=== PATIENT | female | born 2000 | race Caucasian/White ===

== ENCOUNTER 2025-01-28 09:49 | Emergency (ER) | payer OTHER, SELFPAY ==
[2025-01-28 09:50] VITALS: BP 138/89
[2025-01-28 10:24] LABS: % Basophils 0.4 % (0-2); % Eosinophils 0.3 % (0-6); % Immature Granulocytes 0.1 % (0-0.5); % Lymphocytes 17.1 % (20.5-51.1); % Monocytes 6.3 % (1.7-9.3); % Neutrophils 75.8 % (42.2-75.2); Absolute Lymphocytes 1.4 10^3/uL (1.2-3.4); Absolute Monocytes 0.5 10^3/uL (0.1-0.6); Hematocrit 40.5 % (37.0-47.0); Hemoglobin 13.9 g/dL (12.0-16.0); Mean Corp Hgb Conc. 34.3 g/dL (33.0-37.0); Mean Corpuscular Hgb 30.5 pg (27.0-31.0); Mean Corpuscular Volume 88.8 fL (81.0-99.0); Mean Platelet Volume 9.7 fL (7.4-10.4); Nucleated Red Blood Cells % 0 %; Platelet Count 323 10^3/uL (130-400); Red Blood Cell Count 4.56 10^6/uL (4.20-5.40); Red Cell Dist. Width 12.3 % (11.5-14.5); White Blood Cell Count 7.9 10^3/uL (4.8-10.8)
[2025-01-28 10:30] LABS: Urine Albumin Negative (Neg - Trace); Urine Bilirubin Negative (Negative); Urine Character Clear (Clear); Urine Color Yellow; Urine Glucose Negative (Negative); Urine Ketone 2+ (Negative); Urine Leukocyte Negative (Negative); Urine Nitrite Negative (Negative); Urine Occult Blood 3+ (Negative); Urine Urobilinogen Negative (Neg - 1+)
[2025-01-28 10:48] LABS: Urine Bacteria Few (Negative); Urine Red Blood Cell 0-2 /HPF (0-2); Urine Squamous Cell 16-20 /LPF (Few)
[2025-01-28 10:52] LABS: ALT (SGPT) 18 U/L (0-35); AST (SGOT) 27 U/L (14-36); Albumin 4.3 g/dl (3.5-5.0); Alkaline Phosphatase 61 U/L (38-126); Blood Urea Nitrogen 11 mg/dl (7-17); Calcium 9.5 mg/dl (8.4-10.2); Carbon Dioxide 24 mmol/L (22-30); Chloride 105 mmol/L (98-107); Glucose 97 mg/dl (70-99); HCG, Serum Qualitative Screen Negative; Lipase 81 U/L (23-300); Potassium 4.3 mmol/L (3.5-5.1); Sodium 136 mmol/L (135-145); Total Bilirubin 0.3 mg/dl (0.2-1.3); Total Protein 6.7 g/dl (6.3-8.2); eGFR > 60.00
--- NOTE | 2025-01-28 11:42 | ED.GENMED ---
History of Present Illness
General
Chief Complaint: Abdominal Pain
Source: patient
Exam Limitations: none
Time Seen by Provider: 01/28/25 11:06
History of Present Illness
History of Present Illness:
24-year-old otherwise healthy female presents with right lower quadrant abdominal pain started gradually. It was vague and mild this morning but got worse after she had a spin class. She was doubled over in pain with decreased appetite. Now she
states coming and going in waves. Last menstrual cycle was last week. No history of kidney stones. No prior abdominal surgical history. No vomiting. No fever. No other complaints
Phy Exam
Physical Exam
Physical Exam:
General: Well-appearing female no acute respiratory distress
HEENT: Normocephalic atraumatic
Heart: Regular rate and rhythm no murmurs
Lungs: Clear no wheeze
Abdomen soft slightly tender to the right lower quadrant no guarding rebound normal bowel sounds nondistended no costovertebral angle tenderness
Extremities: No cyanosis
Course
Orders/Labs/Results
Orders:
Orders
01/28/25 09:53
Straight cath- Treatment ONCE
Test Result ONCE
01/28/25 10:16
Complete Blood Count/With Diff Urgent
Comprehensive Metabolic Panel Urgent
HCG, Serum Qualitative Screen Urgent
Lipase Urgent
Urinalysis Reflex To Culture Urgent
Date Specimen was Collected: 01/28/25
Time Specimen was Collected: 09:53
Urine Microscopic Reflex Cult Urgent
01/28/25 11:23
0.9% Sodium Chloride 1000 ml [Nss] 1,000 ml IV BOLUS
Iohexol [Omnipaque] See Protocol PO NOW STA
Ketorolac [Toradol] 15 mg IV NOW STA
US Pelvis W Transvag Combined Urgent
Comment:
Reason For Exam: rlq pain
01/28/25 13:56
CT Abd/pel W Iv And Oral Contr Urgent
Comment:
Reason For Exam: rlq pain
Abnormal Lab Results
01/28/25
10:16
Neutrophils % 75.8 H %
(42.2-75.2)
Lymphocytes % 17.1 L %
(20.5-51.1)
Urine Ketones 2+ A
(Negative)
Ur Occult Blood Reflex 3+ A
(Negative)
Urine Bacteria (Reflex) Few A
(Negative)
01/28/25 10:16
01/28/25 10:16
Vital Signs
Initial and Last Documented VS:
Initial Vital Signs
Temp Pulse Resp BP Pulse Ox
98.3 F 87 16 138/89 98
01/28/25 09:50 01/28/25 09:50 01/28/25 09:50 01/28/25 09:50 01/28/25 09:50
Last Documented Vital Signs
Temp Pulse Resp BP Pulse Ox
98.3 F 84 18 120/72 100
01/28/25 09:50 01/28/25 16:10 01/28/25 16:10 01/28/25 16:10 01/28/25 16:10
MDM/Problems Addressed
Differential Diagnosis Includes:
Right lower abdominal pain. Differential could include appendicitis versus renal colic versus ovarian cyst versus constipation
Labs reviewed white count normal. Will start with pelvic ultrasound to evaluate for ovarian related pathology will have patient drink contrast in the event the ultrasound is negative will consider CT
*Critical Care Note
Total Time (30-74mins, 75-104mins- exclusive of procedures): Not Applicable
Update Note
Update Note:
Ultrasound consistent with likely ruptured ovarian cyst on the right side. No evidence of torsion. Had discussion with patient and mother in the room. They are still concerned about potential appendicitis as they were sent in for evaluation of
this. Patient has been prepped for CT. CT is pending
ED Attending Note
-
Portions of this chart may have been created with voice recognition software.� Occasional wrong word or��sound alike� substitutions may have occurred due to the inherent limitations of voice recognition software.
Discharge Plan
Departure
Patient Disposition: Home (Routine Discharge)
Date of Disposition: 01/28/25
Time of Disposition: 16:05
Patient with high blood pressure during this ER visit?: No
Discharge Problem:
Ovarian cyst
Instructions: Ovarian Cyst (DC)
Referrals:
Ernesto Wei PA-C [Family Provider] -
Activity Restrictions/Additional Instructions:
Continue with ibuprofen or Tylenol for pain. Stay hydrated. Return if worse otherwise consider following up with her lunchroom aide for repeat ultrasound to ensure resolution of cyst
Interventions
Interventions:
*Risk Screen - Suicide Last Done: 01/28/25 09:50
*General Assessment Last Done: 01/28/25 16:10
*Neglect/Abuse Screening Last Done: 01/28/25 09:50
*ED- Fall Risk Assessment Last Done: 01/28/25 12:13
*ED COVID-19 Vaccine History Last Done: 01/28/25 13:26
*Nursing Disposition Last Done: 01/28/25 16:10
QG-Mojrsl-Afvgamaodl Assessment Last Done: 01/28/25 12:13
Discharge Date and Time
Discharge Date/Time: 01/28/25 16:18
Print Language: SWEDISH
[2025-01-28] MEDS: NSS 1000 IV (12:09)
[2025-01-28] MEDS: OMNIPAQUE 50 ML PO (12:09)
[2025-01-28] MEDS: TORADOL 15 MG IV (12:10)
[2025-01-28 12:13] VITALS: BMI 28.9
[2025-01-28 13:24] VITALS: BP 119/78
[2025-01-28 16:10] VITALS: BP 120/72
== END 2025-01-28 16:18 | disposition home or self-care (01) ==
LOC: EMR 09:49
PROVIDERS: EMERGENCY PHYSICIAN Emergency Medicine; FAMILY PHYSICIAN Physician Assistant Medical
DX: N83.291 Other ovarian cyst, right side (principal)
CPT/HCPCS: 96374; 96361; 99284; 74177; 76830; 76856; 80053; 81003; 81015; 83690; 84703; 85025; Q9967